=== PATIENT | male | born 1970 | race Caucasian/White ===

== ENCOUNTER 2022-02-25 07:05 | Inpatient (IN) ==
--- OUTSIDE RECORDS SUMMARY | 2022-02-25 09:00 | External Medical Summary ---
:1970 Author Care Team Providers Name Role Phone SAVANAH VOSS Referring Provider [phone] GARIMA VIRGEN MD Primary Care Provider [phone] Allergies Code Code System Name Reaction Severity Status Onset Adhesive Tape Active 20290512 RxNorm Tegretol Active Notes: "Environmental Allergies" Medications Name Status Start Date Stop Date albuterol sulfate HFA 90 mcg/actuation aerosol Active Not available inhaler amoxicillin 875 mg-potassium clavulanate 125 mg Active Not available tablet baclofen 10 mg tablet Active Not availa ble Bactrim DS Active 02/11/2022 Not available Take 1 tablet daily for 10 days bupropion HCl XL 300 mg 24 hr tablet, extended Active Not available release cephalexin 500 mg capsule Active Not av ailable clindamycin phosphate 1 % topical solution Active Not available clonidine HCl 0.2 mg tablet Active Not available duloxetine 30 mg capsule,delayed release Active Not available duloxetine 60 mg capsule,delayed release Active Not available hydrocodone 5 mg-acetaminophen 325 mg tablet Active Not available lorazepam 1 mg tablet Active Not availa ble meloxicam 7.5 mg tablet Active Not avai lable metoclopramide 5 mg tablet Active Not a vailable morphine 15 mg immediate release tablet Active Not available Narcan 4 mg/actuation nasal spray Active Not available peg-electrolyte solution 420 gram oral solution Active Not available pregabalin 150 mg capsule Active Not av ailable sildenafil 50 mg tablet Active Not avai lable sulfamethoxazole 800 mg-trimethoprim 160 mg tablet Active Not available tizanidine 4 mg tablet Active Not avail able Problems Name Status Onset Date Source 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 Past Encounters 02/17/2022 Spastic Cerebral Palsy Stepan Abdul, TOY ELECTRIC TRAIN REPAIRER: [address] [facility] [place] [place] [address], Ph. 01/19/2022 Spastic Cerebral Palsy Benjamin Granger, TOY ELECTRIC TRAIN REPAIRER: [address] [facility] [place] [address], Ph. Social History Tobacco Smoking Status Never Smoker Vaccine List Notes: Covid vaccinated x4 Moderna Plan of Care Patient Goals 1. Pt will need to be free of infection for 2-3 weeks prior to Botox injection. 2. Pt to follow up with IPC after inject ion has cleared. 3. Pt to continue on Bactrim to completi on. Reminders Provider Appointments None recorded. Lab None recorded. Referral None recorded. Procedures None recorded. Surgeries None recorded. Imaging None recorded. Vitals 02/17/2022 11:00AM IPC Procedure 45 min Blood Pressure 168/104 mm[Hg] 01/19/2022 10:00AM IPC Pain Consult- NEW PT Blood Pressure 146/88 mm[Hg]
--- OUTSIDE RECORDS SUMMARY | 2022-02-25 09:00 | External Medical Summary | Encounter Summary ---
:1970 Author Care Team Providers Name Role Phone Rosalva Castrejon MD Primary Care Provider [phone] Gayathri Villegas Referring Provider [phone] Reason for Visit Interventional Pain- In office procedure Assessment and Plan 1. Spastic cerebral palsy 1. Pt presenting in clinic today for Sp lenius capitis, levator scapulae, upper trapezius ; bilateral lower limb spasticity. 2. Pt has an active injection as his por t site. Pt has a red irritated area around the port site. Provider examined the site and explained to pt that we are not able to perform Botox at today's visit due to infection. 3. Pt will need to be free of infection for 2-3 weeks prior to Botox injection. Discussion Note total time spent today by this provide r for this patient, [id number] and non [id number] services combined. Patient educational handouts: No information available. Plan of Care Patient Goals 1. Pt will need to be free of infection for 2-3 weeks prior to Botox injection. 2. Pt to follow up with IPC after inject ion has cleared. 3. Pt to continue on Bactrim to completi on. Reminders Provider Appointments None recorded. Lab None recorded. Referral None recorded. Procedures None recorded. Surgeries None recorded. Imaging None recorded. Medications Name Start Date albuterol sulfate HFA 90 mcg/actuation aerosol inhaler amoxicillin 875 mg-potassium clavulanate 125 mg tablet TAKE 1 TABLET BY MOUTH EVERY DAY WITH FOOD. baclofen 10 mg tablet Bactrim DS 02/11/2022 Take 1 tablet daily for 10 days bupropion HCl XL 300 mg 24 hr tablet, extended release cephalexin 500 mg capsule clindamycin phosphate 1 % topical solution clonidine HCl 0.2 mg tablet duloxetine 30 mg capsule,delayed release TAKE ONE CAPSULE PER DAY WIITH 60 MG CAPSULE - GREEN & OBLONG CAPSULE 747 duloxetine 60 mg capsule,delayed release TAKE 1 CAPSULE BY MOUTH EVERY DAY ALONG WITH A 30MG C APSULE hydrocodone 5 mg-acetaminophen 325 mg tablet TAKE 1 TABLET BY MOUTH TWICE DAILY IF NEEDED lorazepam 1 mg tablet meloxicam 7.5 mg tablet TAKE 1 TABLET BY MOUTH THREE TIMES DAILY -LT YELLOW R OUND UL 7.5 metoclopramide 5 mg tablet morphine 15 mg immediate release tablet TAKE 1 TABLET BY MOUTH 3 TIMES A DAY NEEDED FOR CHRONIC PAIN - NO MORE THAN 3 IN 24 HOURS Narcan 4 mg/actuation nasal spray peg-electrolyte solution 420 gram oral solution pregabalin 150 mg capsule sildenafil 50 mg tablet sulfamethoxazole 800 mg-trimethoprim 160 mg tablet tizanidine 4 mg tablet TAKE TAKE 1 & 1/2 TABLETS BY MOUTH THRE E TIMES A DAY AND 2 & 1/2 TABLETS AT BEDTIME MAY CAUSE DROWSINESS Medications Administered None recorded. Vitals Blood Pressure 168/104 mm[Hg] Results Lab Results None recorded. Allergies Code Code System Name Reaction Severity Onset Adhesive Tape 20290512 RxNorm Tegretol Notes: "Environmental Allergies" Problems Name Status Onset Date Source Spastic [...] with many replacements, most recent in 2021" Vaccine List Notes: Covid vaccinated x4 Moderna Social History Tobacco Smoking Status Never Smoker What type of diet are you following? REGULAR What is your level of alcohol consumption? None What is the highest grade or level of school you have comple linda or [id number] the highest degree you have received? Are you able to care for yourself? Y Are you currently employed? N What was the date of your most recent tobacco screening? Do you have an advanced directive? Y What is your level of caffeine consumption? Moderate Do you or have you ever used any other forms of tobacco or n icotine? N Do you use any illicit or recreational drugs? N What is your relationship status? Functional Status Unknown. Past Encounters 02/17/2022 Spastic Cerebral Palsy Stepan Abdul, TARGET PROTECTION SPECIALIST: [address] [place] [address], Ph. 01/19/2022 Spastic Cerebral Palsy Benjamin Granger, TARGET PROTECTION SPECIALIST: [address] [facility] [place] [address], Ph. History of Present Illness Note: <div>Pt is a 52yo M presenting in clinic today for Splenius capitis, levator scapulae, upper trapezius ; bilateral lower limb spasticity. </div><div>
</div> Review of Systems None recorded. Physical Exam Notes: <div>Pt has an active inject ion as his port site. Pt has a red irritated area around the port site. Provid er examined the site and explained to pt that we are not able to perform Boto x at today's visit due to infection. </div>
--- OUTSIDE RECORDS SUMMARY | 2022-02-25 09:01 | External Medical Summary | Encounter Summary ---
:1970 Author Care Team Providers Name Role Phone Rosalva Castrejon MD Primary Care Provider [phone] Gayathri Villegas Referring Provider [phone] Reason for Visit Interventional Pain - Initial Consultati on DAMI Villegas referral- limb spasticity Assessment and Plan Assessment Note Patient presents to clinic today for in itial consultation for diagnosis documented below. Patient will be scheduled for interventi onal pain injection. 1. Spastic cerebral palsy 1. Pt reports Hx spastic cerebral palsy treated with botox injections. Pt reports primary complaint of anesthesia bilateral hands.; paresthesia bilateral foot 2. Pt reports spastic plantarflexion richie ateral lower extremities but reports ability to walk with a plantar gait. Pt reports use of prescribed joint braces, orthotics with some relief 3. Tenderness to palpation, increased to ne bilateral splenius capitis, upper trapezius, levator scapulae 4. Lower limb spasticity - See PE for As hworth rating 5. Pt will be scheduled for Botox Inject ion - Cervical Dystonia and Lower Limb Spasticity chemodenervation of muscle(s); muscle (s) innervated by facial, trigeminal, cervical spinal and accessory nerves, bi lateral (PROC) Discussion Note total time spent today by this provide r for this patient, [id number] and non [id number] services combined. Patient educational handouts: No information available. Plan of Care Reminders Provider Appointments None recorded. Lab None recorded. Referral None recorded. Procedures Chemodenervation of 01/19/2022 Maureen In terventional Muscle(s); Muscle(s) Pain Innervated by Facial, Trigeminal, Cervical Spinal and Accessory Nerves, Bilateral (PROC) Surgeries None recorded. Imaging None recorded. Medications [...] Medications Administered None recorded. Vitals Blood Pressure 146/88 mm[Hg] Results Lab Results None recorded. Allergies [...] Information not available Vasectomy Information not avai labalfonso Notes: Pain pump - initial placement 1 997, with many replacements, most recent in 2021" Vaccine List Notes: Covid vaccinated x4 Moderna Social History Tobacco Smoking Status Never Smoker What type of diet are you following? REGULAR What is your level of alcohol consumption? None What is the highest grade or level of school you have comple linda or [id number] the highest degree you have received? Are [...] relationship status? Functional Status Unknown. Past Encounters 01/19/2022 Spastic Cerebral Palsy Benjamin Granger INSECTICIDE EXPERT: [address] [facility] [place] [address], Ph. History of Present Illness Pain Management Initial Reported By: Patient Pain Management Initial: Hand Dominance: ambidextrous . Quality: constant, worsening. Duration: ; "Since childhood - keeps getting worse". Timing: chronic. Alleviating Factors : sitting, lying down, position change, heat, ice, rest, str etching, PT/OT. Aggravating Factors: sitting, standing, walking, lifting, carrying, twisting, pushing/pulling, g ripping, grasping, squeezing, ROM, weightbearing, exercise , previous surgery, changing clothes, getting out of bed, going from sit to stand, nighttime, cold weather, dam p weather. Associated Symptoms: weakness, numbness, tingling , swelling, popping/clicking, buckling, grinding, instabil ity. Previous Surgery: surgical procedure:. Prior Imaging: x ray, MRI, CT scan, EMG. Previous Injections: helped temporarily. Previous PT: helped temporarily. Work Related: n o. 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 Pt reports Hxcerebral palsy treated with botox injections. Pt reports primary complaint of anesthesia bilateral hands.; paresthesia bilateral foot. Pt reports spastic plantarflexion bilateral lower extremities but reports ability to walk with a plantar gait. Pt reports use of prescribed joint braces, orthotics with some relief.</div><div>
</div><div>Pt reports pain in right hip and attributes this to osteoarthritis of joint. Pt reports pain in right shoulder joint and attributes this to tendinitis. Pt reports Dx herniated discs, compression fracture of lumbar spine. Pt reports pain in low back referring down posterolateral aspect of bilateral lower extremities, terminating low calf. Pt reports recent change in sexual function, decreased sensation. Pt denies any bowel, bladder incontinence.</div><div>
</div><div>Pain location: "All Over "</div><div>New injury or new area of pain? {{yes|no*}}</div><div>Current pain rating: {{0|1|2|3|4|5|6|7|8*|9|10}}</div><div>Pain rating when feeling &qu ot;worst": {{0|1|2|3|4|5|6|7|8|9*|10}}</div><div>Pain rating when feeling &q uot;best": {{0|1|2|3|4|5|6*|7|8|9|10}}</div><div>Rating of "average, usual" pain: {{0|1|2|3|4|5|6|7*|8|9|10}} </div><div>Is the patient's painradiating? {{yes*|no}}</div><div>Is the patient experiencing muscle weakness? {{yes*|no}} </div><div>Has patient participated in Physical Therapy? {{yes*|no}}. If yes, duration {{1|2|3|4|5|6|7|8|9|10|11|12}}week(s) Last in 2019</div><div>Was Physical Therapy Helpful?{{yes*|no}}</div><div>Has patient tried chiropractic therapy? {{yes*|no}}</div><div>Has patient tried Massage Therapy? {{yes*|no}}</div><div>Has patient tried home exercise therapy? {{yes*|no}}</div><div>Has patient tried OTC medication? {{yes*|no}} If so, what kind?{{Acetaminophen*}}{{NSAIDs}}{{Topical Pain relief gels/creams*}}</div><div>Were any OTC medication effective? {{yes*|no}}</div><div>Has patient tried prescription medication? {{yes*|no}} If so, what kind?</div><div>Does this pain affect patient'sability to perform activities of daily living? {{yes*|no}}</div><div>How many times in the past year has the patient visited an emergency room for out of control pain or pain management? 0</div><div>Do the patient experience problems with any of the following?{{sleep}}{{appetite}}{{bowel control}}{{bladder control*}}{{night sweats}}</div> Review of Systems NEW PATIENT - 10 item ROS Reported By: Patient Physical Exam Notes: <div>Pt refered to us for co ntinuation of BOTOX treatment for upper and lower limb spasticity. Pt with mul tiple areas of spasticity in the upper and lower limbs. Below is the full ass essment of patients upper and lower limbs with michelle scale. </div><div>T enderness to palpation, increased tone bilateral upper trapezius</div><div>Te nderness to palpation, increased tone bilateral splenius capitis</div><div>T enderness to palpation, increased tone bilateral levator scapulae</div><div>< br></div><div>Abrasion dorsal right foot</div><div>
</div><di v>ASSESSMENT OF LOWER LIMB SPASTICITY</div><div>
</d iv><div>Side: {{Left|Right*}}</div><div>Michelle Scale</div><div>
</div ><div>ALKLE FLEXORS</div><div> - GASTROCNEMIUS {{1|2|3*|4}} medial and late ral head</div><div> - SOLEUS {{1|2|3*|4}}</div><div> - TIBIALIS POSTERIOR {{1|2|3*|4}}</div><div>
< /div><div>TOE FLEXORS</div><div> - FLEXOR DIGITORUM LONGUS {{1|2|3|4*} }</div><div> - FLEXOR HALLUCIS LONGUS {{1|2|3*|4}}</div><div>
< /div><div>
</div><div>ASSESSMENT OF LOWER LIMB SPASTICITY</div><div>
</d iv><div>Side: {{Left*|Right}}</div><div>As hworth Scale</div><div>
</div><div>ALKLE FLEXORS</div><div> - GASTROC NEMIUS {{1|2|3*|4}} medial and lateral head</div><div> - SOLEUS {{1 |2|3|4*}}</div><div> - TIBIALIS POSTERIOR {{1|2|3*|4}}</div><div>
< /div><div>TOE FLEXORS</div><div> - FLEXOR DIGITORUM LONGUS {{1|2|3|4*} }</div><div>Phalanx 2: 3; Phalanx 3-4: 3; Phalanx 5: 3</div><div> - FLEXOR DIANA LUCIS LONGUS {{1|2|3*|4}}</div>
--- OUTSIDE RECORDS SUMMARY | 2022-02-25 09:01 | External Medical Summary ---
:1970 Author Care Team Providers Name Role Phone DR. GARIMA VIRGEN Referring Provider [phone] GARIMA VIRGEN MD Primary Care Provider [phone] Allergies Code Code System Name Reaction Severity Status Onset NKDA Notes: tape Medications Name Status Start Date Stop Date amoxicillin 875 mg-potassium clavulanate 125 mg Active Not available tablet baclofen 10 mg tablet Active Not availa ble bupropion HCl XL 150 mg 24 hr tablet, extended Active Not available release bupropion HCl XL 300 mg 24 hr tablet, extended Completed 09/18/2019 release clonidine HCl 0.2 mg tablet Active Not available doxycycline hyclate 100 mg tablet Active Not available Take 1 tablet every day by oral route. duloxetine 30 mg capsule,delayed release Active Not available etodolac 200 mg capsule Active Not avai lable gabapentin 100 mg capsule Completed 2019 gabapentin 300 mg capsule Completed 2019 hydrocortisone 2.5 % topical cream Active Not available APPLY A THIN LAYER TO THE AFFECTED AREA(S) BY TOPICAL ROUTE 2 T IMES PER DAY hydromorphone (PF) 1 mg/mL injection solution Active Not available Take 1.924 mg every day by injection route. hydromorphone 2 mg tablet Completed 2019 Take 1 tablet every 3 hours by oral route as needed. lorazepam 1 mg tablet Active Not availa ble Lyrica 75 mg capsule Active Not availab le Take 1 capsule 3 times a day by oral route. morphine 15 mg immediate release tablet Active Not available 1 Tablet TID. Narcan 4 mg/actuation nasal spray Completed 09/18/2019 Nulytely [place] 420 gram oral solution Active Not available DIRECTED BY PHYSICANS OFFICE pregabalin 150 mg capsule Completed 2019 ProAir HFA 90 mcg/actuation aerosol inhaler Active Not available Inhale 2 puffs every 4 hours by inhalation route. tizanidine 4 mg tablet Completed 0 Zanaflex 4 mg capsule Active Not availa ble Take 1 capsule every 6 hours by oral route. Notes: Pain pump Problems Name Status Onset Date Source Anemia Active 04/08/2019 Chronic Depression Active 04/08/2019 Restless Legs Active 04/08/2019 Spastic Cerebral Palsy Active 04/08/2019 Hypertensive Disorder Active 04/08/2019 Muscle Pain Active 04/08/2019 Sleep Apnea Active 04/08/2019 Incontinence Active 04/08/2019 Dystonia Active 04/08/2019 Low Back Pain Active 09/18/2019 Pain in Right Hip Joint Active 09/18/2019 Procedures Date Name Performed by Pain Pump Placement/Removal Information not available Tonsillectomy Information not avai lable Hernia Repair Information not avai lable Tendon Lengthening Information not avai lable Unlisted Px Leg/ankle Information not av ailable Notes: Right Extraction of [place] Tooth Information n ot available 09/25/2019 CT, Lumbar Spine, W/o Contrast [facility] [address] [facility], [place] [id number] (Work Place) 09/25/2019 CT, Hip, W/o Contrast [facility] [address] [place] [address] (Work Place) Results Lab Results None recorded. Past Encounters None recorded. Social History Tobacco Smoking Status Never Smoker Vaccine List None recorded. Plan of Care Reminders Provider Appointments None recorded. Lab None recorded. Referral None recorded. Procedures None recorded. Surgeries None recorded. Imaging None recorded. Vitals 12/02/2019 11:30AM Established Patient 15 Height Weight BMI Blood Pressure 5 ft 9 in 214 lbs 31.6 kg/m2 118/82 mm[Hg] 09/18/2019 10:30AM New Patient 30 Height Weight BMI Blood Pressure 5 ft 9 in 218.2 lbs 32.2 kg/m2 114/84 mm[Hg]
--- OUTSIDE RECORDS SUMMARY | 2022-02-25 09:01 | External Medical Summary ---
:1970 Author Care Team Providers Name Role Phone GARIMA VIRGEN MD Primary Care Provider [phone] Allergies Code Code System Name Reaction Severity Status Onset NKDA Medications Name Status Start Date Stop Date amoxicillin 875 mg-potassium clavulanate 125 mg tablet Active Not available azithromycin 250 mg tablet Completed 08/22 baclofen 10 mg tablet Active Not availa ble bupropion HCl XL 150 mg 24 hr tablet, extended release Active Not available bupropion HCl XL 300 mg 24 hr tablet, extended release Active Not available cephalexin 500 mg capsule Completed 2017 clonidine 0.2 mg-chlorthalidone 15 mg tablet Completed 09/25/2017 Take 1 tablet twice a day by oral route. clonidine HCl 0.2 mg tablet Active Not available diazepam 5 mg tablet Active Not availab le duloxetine 30 mg capsule,delayed release Active Not available duloxetine 60 mg capsule,delayed release Active Not available ertapenem 1 gram solution for injection Completed 10/23/2018 etodolac 200 mg capsule Completed 10/24/19 19 gabapentin 100 mg capsule Active Not av ailable gabapentin 300 mg capsule Active Not av ailable tid hydrocodone 10 mg-acetaminophen 325 mg tablet Completed 08/22/2017 hydromorphone 2 mg tablet Completed 2018 hydroxyzine pamoate 25 mg capsule Completed 10/23/2018 lorazepam 1 mg tablet Active Not availa ble Lyrica 75 mg capsule Completed 08/22/2017 Take 1 capsule twice a day by oral route. meloxicam 7.5 mg tablet Active Not avai lable methylprednisolone 4 mg tablets in a dose pack Completed 08/22/2017 morphine 15 mg immediate release tablet Active Not available morphine 15 mg tablet, crush resistant, extended release Complet ed 03/01/2018 Take 1 tablet every 12 hours by oral route. Narcan 4 mg/actuation nasal spray Active Not available nystatin 100,000 unit/gram topical powder Active Not available oxycodone 15 mg tablet Completed 8 oxycodone 5 mg tablet Completed 03/01/2018 oxycodone-acetaminophen 5 mg-325 mg tablet Completed 06/21/2018 pregabalin 150 mg capsule Active Not av ailable silver sulfadiazine 1 % topical cream Completed 06/21/2018 tizanidine 4 mg tablet Active Not avail able acetaminophen 300 mg-codeine 30 mg tablet Active Not available Ventolin HFA 90 mcg/actuation aerosol inhaler Active Not available Xarelto 10 mg tablet Completed 03/01/2018 Problems Name Status Onset Date Source Mechanical Complication of Implant Active 06/27/2017 Pain in Right Hip Joint Active 06/27/2017 Pain in Right Knee Active 06/27/2017 Aftercare Active 11/23/2017 Arthritis of Right Knee Active 01/02/2018 Replacement of Total Knee Joint Active 06/21/2018 External Rotation of Lower Limb Active 07/31/2018 Hip Pain Active 09/14/2018 Procedures Date Name Performed by 01/10/2018 Total Knee Arthroplasty Information not available Notes: right 07/12/2017 Removal of Plating System (Surg) Informa tion not available 06/27/2017 XR, Hip, Unilateral, 2 [place] [address] [place] [phone] (Work Place) 06/27/2017 XR, Knee, 4 [place] [address] [place] [phone] (Work Place) 07/25/2017 XR, K[place], 1 [place] [address] [facility] [address] [phone] (Work Place) 08/22/2017 XR, Knee, 1 [place] 2 [place] [address] [place] [phone] (Work Place) 09/25/2017 XR, Knee, 4 [place] [address] [place] [phone] (Work Place) 11/23/2017 XR, Joint, Multiple, 1 [place] [address] [place] [phone] (Work Place) 01/02/2018 XR, Knee, 1 or 2 View [place] [address] [place] [address] (Work Place) 01/04/2018 XR, Foot, 3 or More View [place] [address] [place] [address] (Work Place) 01/04/2018 XR, Ankle, 3 or More View [place] [address] [place] [address] (Work Place) 06/21/2018 XR, Knee, 3 View [place] [address] [place] [address] (Work Place) 06/21/2018 XR, Joint, Multiple, 1 View [place] [address] [place] [address] (Work Place) 09/13/2018 XR, Hip, Unilateral, 2 or 3 View [place] [address] o [address] [place] [address] (Work Place) 09/13/2018 XR, Joint, Multiple, 1 View [place] [address] [place] [address] (Work Place) 10/23/2018 XR, Hip, Unilateral, 2 [place] [address] [place], [place] [phone] (Work Place) 12/13/2018 XR, Knee, 3 View [place] [address] [place] [address] (Work Place) Results Lab Results Date Name Specimen Result Interpretation Description Value Range Status Address 02/08/2018 Culture, KNEE ABNORMAL Aerobic final report F inal [facility] Aerobic Bacterial ([facility]): Culture [address], [place] KNEE ABNORMAL Result 1 escherichia Final [facility] coli ([facility]) : [address], [place] KNEE Antimicrobial comment Final [facility] Susceptibility ([facility]): [address], [place] Past Encounters None recorded. Social History Tobacco Smoking Status Never Smoker Vaccine List None recorded. Plan of Care Reminders Provider Appointments None recorded. Lab None recorded. Referral None recorded. Procedures None recorded. Surgeries None recorded. Imaging None recorded. Vitals 12/13/2018 10:45AM Recheck 15 Height Weight BMI Blood Pressure 6 ft 210 lbs 28.5 kg/m2 97/69 mm[Hg] 10/23/2018 01:30PM Recheck 15 Height Weight BMI Blood Pressure 6 ft 210 lbs 28.5 kg/m2 152/93 mm[Hg] 09/13/2018 01:30PM Recheck 15 Height Weight BMI Blood Pressure 6 ft 210 lbs 28.5 kg/m2 133/87 mm[Hg] 07/30/2018 11:30AM Recheck 15 Height Weight BMI Blood Pressure 6 ft 200 lbs 27.1 kg/m2 108/56 mm[Hg] 06/21/2018 10:15AM Recheck 15 Height Weight BMI Blood Pressure 6 ft 200 lbs 27.1 kg/m2 131/93 mm[Hg] 03/15/2018 11:15AM Post Op 15 Height Weight BMI Blood Pressure 6 ft 200 lbs 27.1 kg/m2 116/74 mm[Hg] 03/01/2018 10:00AM Post Op 15 Height Weight BMI Blood Pressure 6 ft 200 lbs 27.1 kg/m2 110/65 mm[Hg] 02/20/2018 03:30PM Post Op 15 Height Weight BMI Blood Pressure 6 ft 210 lbs 28.5 kg/m2 101/65 mm[Hg] 02/08/2018 03:30PM 1st PO 15 Height Weight BMI Blood Pressure 6 ft 210 lbs 28.5 kg/m2 153/83 mm[Hg] 01/04/2018 11:00AM [employer]TER to Height Weight BMI Blood Pressure 6 ft 210 lbs 28.5 kg/m2 158/99 mm[Hg] 01/02/2018 10:30AM Preop 15 Height Weight BMI Blood Pressure 6 ft 210 lbs 28.5 kg/m2 141/92 mm[Hg] 12/05/2017 08:30AM [employer] to Height Weight BMI Blood Pressure 6 ft 210 lbs 28.5 kg/m2 140/83 mm[Hg] 11/23/2017 11:30AM Recheck 15 Height Weight BMI Blood Pressure 6 ft 210 lbs 28.5 kg/m2 120/82 mm[Hg] 09/25/2017 11:20AM Recheck 10 Height Weight BMI Blood Pressure 6 ft 210 lbs 28.5 kg/m2 120/78 mm[Hg] 08/22/2017 01:50PM New Problem 15 Height Weight BMI Blood Pressure 6 ft 222 lbs 30.1 kg/m2 132/89 mm[Hg] 07/25/2017 10:45AM 1st PO 15 Height Weight BMI Blood Pressure 6 ft 222 lbs 30.1 kg/m2 146/87 mm[Hg] 06/27/2017 01:45PM Recheck 15 Height Weight BMI Blood Pressure 6 ft 222 lbs 30.1 kg/m2 133/83 mm[Hg]
--- NOTE | 2022-02-25 10:39 | Internal Med History&Physical ---
HPI History of Present Illness Patient information: Note initiated : 02/25/22 at 10:21 am Service Date, if different from initiated Date: [] Patient: Aden Restrepo 52 y/o M admitted on 02/25/22 for pain pump wound. Chief Complaint: [pain pump complications] Chief complaint: pain pump complications History of present illness: Mr. 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 He had pain pump placed in left upper quadrant abdomen in April of this year. It has been noted that the pain pump has eroded through the skin with a opening up to have in just in diameter for the past week. There was also slightly purulent discharge from the site. Last night the patient's had a mechanical fall in the pain pump components completely detached. He presented to outside ED [place], and the ED provider call Dr. Du pain specialist who agree to take the patient to the OR to take out the OR and malfunctioning pain pump and potenti ally place a new pump in another site. Constitutional Constitutional: Absent chills, excessive sweating, fatigue, fever(s) or weakness EENT Eyes: Absent blurry vision, change in vision, loss of vision or other visual disturbances Ears: Absent decreased hearing or tinnitus Nose, mouth and throat: Absent abnormal hearing, dry mouth, headache(s), nasal congestion or sore throat Cardiovascular Cardiovascular: Absent chest pain, chest pain at rest, edema, irregular heart rhythm or palpatations Respiratory Respiratory: Absent cough, dyspnea or wheezing Gastrointestinal Gastrointestinal: Absent abdominal pain, constipation, diarrhea, nausea or vomiting Musculoskeletal Musculoskeletal: Absent back pain, deformity, limited range of motion, muscle cramps, muscle weakness or numbness Integumentary Integumentary: Absent lesions, rash or wounds Neurological Neurological: Absent focal weakness, headache(s) or numbness Psychiatric Psychiatric: Absent anxiety, depression or hallucinations PFSH PFSH All Active Problems (Updated 02/25/22 @ 10:34 by Evgeny Barroso MD) Cellulitis and abscess of other specified site (Acute) Fever (Chronic) End of battery life of intrathecal infusion pump (Chronic) Spastic quadriplegia (Chronic) Acne (Chronic) Myalgia (Chronic) Urge incontinence (Chronic) Torsion dystonia (Chronic) 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) Central sleep apnea (Chronic) Hypoxia (Chronic) Gynecomastia (Chronic) Abnormal liver function (Chronic) RLS (restless legs syndrome) (Chronic) Anemia due to blood loss (Chronic) Muscle weakness of extremity (Chronic) Pain, joint, hip, right (Chronic) Pneumonia, unspecified organism (Chronic) Overweight (Chronic) Visual impairment (Chronic) Opioid dependence (Chronic) Dyslexia (Chronic) Depression (Chronic) Chronic pain (Chronic) Cerebral palsy (Chronic) Abnormality of gait (Chronic) Spasmodic torticollis (Chronic) Degenerative joint disease (Chronic) Generalized anxiety disorder (Chronic) Headache (Chronic) Hypertension (Chronic) Bronchitis, chronic (Chronic) GERD (gastroesophageal reflux disease) (Chronic) Basal cell carcinoma of skin, unspecified (Chronic) Medical History (Updated 02/25/22 @ 10:34 by Evgeny Barroso MD) Abnormal liver function Abnormality of gait Acne Anemia due to blood loss Basal cell carcinoma of skin, unspecified Bronchitis, chronic Central sleep apnea Cerebral palsy With intrathecal pump in place Chronic pain With intrathecal pump in place Degenerative joint disease Depression Dyslexia End of battery life of intrathecal infusion pump Fever Generalized anxiety disorder GERD (gastroesophageal reflux disease) Gynecomastia Headache Hypertension Hypoxia [facility] (current) use of opiate analgesic Muscle weakness of extremity Myalgia Opioid dependence Overweight Pain, joint, hip, right Pneumonia, unspecified organism RLS (restless legs syndrome) Spasmodic torticollis Spastic quadriplegia Torsion dystonia Urge incontinence Visual impairment Surgical History (Updated 03/09/21 @ 08:58 by Ann-Marie Diaz) History of hernia surgery Double hernia at 3 months History of surgery (~2002) Titanium rodding of right femur-Al Sabillon MD, achilles tendon extension History of surgical procedure Intrathecal pain pump placement-11/27/03. Replacement 11/28/[address] Dani Cronin-[facility]. Revision 09/13/11 Dr Elmo Lobo, [facility] History of tonsillectomy and adenoidectomy History of total knee arthroplasty (01/10/18) Dr Toshia Jensen- [facility] History of wisdom tooth extraction Family History (Updated 06/02/21 @ 11:45 by Ann-Marie Davalos) Father History of cancer High blood pressure Arthritis Chronic pain Diabetes Family/Other History of cancer Social History (Updated 06/02/21 @ 11:46 by Ann-Marie Davalos) marital status: occupational status: unemployed and disabled smoking status: Never smoker alcohol intake frequency: does not drink substance use type: does not use MEDS/ALLERGIES Home Medications and Allergies Home Medications Medication Instructions Recorded Confirmed Type albuterol sulfate 90 mcg/actuation 90 mcg inhalation Q6HP PRN 03/11/21 11/29/21 History aerosol inhaler Shortness Of Breath amoxicillin 875 mg-potassium 1 tab PO QDAY 03/11/21 11/29/21 History clavulanate 125 mg tablet bupropion HCl 300 mg 24 hr tablet, 300 mg PO QDAY 03/11/21 11/29/21 History extended release lorazepam 1 mg tablet 1 - 2 mg PO BID 03/11/21 11/29/21 History meloxicam 7.5 mg tablet 7.5 mg PO TID 03/11/21 11/29/21 History Bio Soothe 1 cap PO QDAY 04/15/21 11/29/21 History Electrolyte Replacement 1 tab PO QDAY 04/15/21 11/29/21 History Floraspring 1 cap PO QDAY 04/15/21 11/29/21 History acetaminophen 325 mg tablet 650 mg PO Q6H PRN Pain 04/15/21 11/29/21 History calcium 600 mg capsule 600 mg PO QDAY 04/15/21 11/29/21 History cholecalciferol (vitamin D3) 125 125 mcg PO QDAY 04/15/21 11/29/21 History mcg (5,000 unit) tablet (Vitamin D3) diphenhydramine HCl 25 mg capsule 25 mg PO Q6H PRN Allergies 04/15/21 11/29/21 History (Allergy (diphenhydramine)) glucosamine sulf dipot 1 cap PO QDAY 04/15/21 11/29/21 History chlr,msm,chond 550 mg-C 30 mg-roscoe 1 mg capsule (Glucosamine Chondroitin) multivitamin 1 tab PO QDAY 04/15/21 11/29/21 History potassium 99 mg tablet 99 mg PO QDAY 04/15/21 11/29/21 History clonidine HCl 0.2 mg tablet 0.2 mg PO BID #60 tabs 07/02/21 11/29/21 Rx duloxetine 30 mg capsule,delayed 30 mg PO QDAY #30 caps 07/02/21 11/29/21 Rx release duloxetine 60 mg capsule,delayed 60 mg PO QDAY #30 caps 07/02/21 11/29/21 Rx release naloxone 4 mg/actuation nasal 4 mg intranasal Q2M #1 ea 07/02/21 11/29/21 Rx spray (Narcan) sulfamethoxazole 800 1 tab PO BID #20 tabs 07/27/21 11/29/21 Rx mg-trimethoprim 160 mg tablet hydrocodone 5 mg-acetaminophen 325 1 tab PO BID #60 tabs 11/29/21 11/29/21 Rx mg tablet morphine 15 mg immediate release 15 mg PO TID #90 tabs 11/29/21 11/29/21 Rx tablet baclofen 10 mg tablet 10 mg PO TID #90 tabs 12/31/21 Rx tizanidine 4 mg tablet 6 - 10 mg PO QID #120 tabs 12/31/21 Rx pregabalin 150 mg capsule 150 mg PO TID #90 caps 02/15/22 Rx Allergies Allergy/AdvReac Type Severity Reaction Status Date / Time carbamazepine [From Tegretol] Allergy Severe Shortness Verified 11/29/21 10:59 of Breath adhesive tape Allergy Intermediate Hives Verified 11/29/21 10:59 baclofen AdvReac Intermediate Nausea Verified 11/29/21 10:59 No to Iodine Allergy Unknown Unknown Uncoded 11/29/21 10:59 No to Latex Allergy Unknown Unknown Uncoded 11/29/21 10:59 EXAM Constitutional Vitals: Temp Pulse Resp BP Pulse Ox O2 Del Method 36.1 C 77 16 148/90 96 02/25/22 09:17 02/25/22 09:17 02/25/22 09:17 02/25/22 09:17 02/25/22 09:17 02/25/22 09:17 General appearance: cooperative and no acute distress Head Head exam: Present atraumatic and normocephalic Eye Eye exam: Present EOMI and PERRL ENT ENT exam: Present mucous membranes moist, normal exam and normal external ear exam Neck Neck exam: Present normal inspection; Absent lymphadenopathy, tenderness or thyromegaly Respiratory Respiratory exam: Absent accessory muscle use, respiratory distress or wheezes Cardiovascular Cardiovascular exam: Present normal rate and rhythm; Absent JVD GI/Abdominal GI/Abdominal exam: Present normal bowel sounds and soft; Absent organomegaly or tenderness Additional comments: Pain pump in LUQ abdomen with 1/2 inch open wound with surrounding erythema and slight purulent discharge Rectal Rectal exam: Present deferred Extremities Exam Extremities exam: Present full ROM, normal capillary refill and normal inspection; Absent tenderness Neurological Exam Neurological exam: Present alert, CN II-XII intact and oriented X3; Absent motor sensory deficit Psychiatric Psychiatric exam: Present normal affect and normal mood; Absent anxious or depressed Skin Skin exam: Present dry and intact A/P Assessment and plan (1) Depression: Status: Chronic (2) Generalized anxiety disorder: Status: Chronic (3) Spastic quadriplegia: Status: Chronic (4) Chronic pain: Status: Chronic Comment: With intrathecal pump in place (5) Cellulitis and abscess of other specified site: Status: Acute Narrative A/P Narrative: Assessment and Plans: 1. Pain pump complications and infection: Inpatient med surg Dr. Du consulted for removal of old pain pump and replacement of a new pain pump; NPO with IN fluid infusion for now until date/time of the surgery(procedure) confirmed Blood culture Wound culture MRSA PCR screening cbc w/ auto diff in the morning to trend WBC Vancomycin Cefepime Diflucan 2. Chronic pain associated with spastic quadriplegia: Baclofen, Mathis, and Dilaudid PRN pain control until new pain pump is functional 3. Anxiety and depression: Bupropion Duloxetine Lorazepam GI ppx: not currently indicated DVT ppx: SCDs Code status: Full Prognosis: guarded Disposition: inpatient med surg Time Spent With Patient Time: Total time spent is greater than 50% in coordination of care (as documented) at patient's floor/unit and/or counseling patient: Total time spent with greater than 50% in coordination of care (as documented) at patient's floor/unit and/or counseling patient:: 50 - 70 minutes
[2022-02-25] MEDS ORDERED: IPRATROPIUM/ALBUTEROL 3 ML AMPUL.NEB NEB PRN ×2 (10:42→14:31)
[2022-02-25] MEDS ORDERED: 0.9 % SODIUM CHLORIDE 1,000 ML IV SCH (10:42)
[2022-02-25] MEDS ORDERED: VANCOMYCIN PER PHARMACY IV SCH (10:42)
[2022-02-25] MEDS ORDERED: ONDANSETRON 4 MG/2 ML VIAL IV PRN ×2 (10:42→14:31)
[2022-02-25] MEDS ORDERED: ACETAMINOPHEN 325 MG TABLET PO PRN (10:42)
[2022-02-25] MEDS: HYDROmorphone 0.5 MG/0.5 ML SYRINGE IV PRN ×2 (12:13→21:15)
[2022-02-25] MEDS ORDERED: diphenhydrAMINE 25 MG CAPSULE PO PRN (12:13)
[2022-02-25] MEDS ORDERED: ALBUTEROL SULFATE 60 PUFF INHALER INH PRN (12:13)
[2022-02-25] MEDS ORDERED: ACETAMINOPHEN (PP) 325MG TABLET (#50) PO PRN (12:13)
[2022-02-25] MEDS ORDERED: LORazepam (PP) 1 MG TABLET (#4) PO SCH (12:15)
[2022-02-25 12:28] LABS: ALT/SGPT 13 U/L (<40); AST/SGOT 16 U/L (<40); Albumin 4.2 gm/dL (3.2-5.2); Albumin/Globulin Ratio 1.4 (1.0-2.3); Alkaline Phosphatase 87 U/L (39-117); Bilirubin,Direct < 0.2 mg/dL (0-0.3); Bilirubin,Total 0.4 mg/dL (0.1-1.0); Blood Urea Nitrogen 16 mg/dL (6-20); Calcium 9.1 mg/dL (8.6-10.4); Carbon Dioxide 27 mmol/L (22-30); Chloride 99 mmol/L (96-108); Globulin 2.9 gm/dL (2.2-3.7); Glomerular Filtration Rate 103; Glucose 103 mg/dL (70-105); Lactate Dehydrogenase 215 U/L (135-225); Phosphorous 3.5 mg/dL (2.5-4.5); Triglycerides 77 mg/dL (<150); Uric Acid 3.2 mg/dL (2.5-8.0)
[2022-02-25] MEDS ORDERED: GLYCOPYRROLATE 0.2 MG/ML VIAL IV ONE (13:54)
[2022-02-25] MEDS ORDERED: DEXAMETHASONE 10 MG/ML VIAL ONE (13:54)
[2022-02-25] MEDS ORDERED: KETAMINE 50 MG/ML Syringe (ANEST) IV ONE (13:54)
[2022-02-25] MEDS ORDERED: fentaNYL 100 MCG/2 ML VIAL IV ONE (13:54)
[2022-02-25] MEDS ORDERED: PROPOFOL 200 MG/20 ML VIAL IV ONE (13:54)
[2022-02-25] MEDS ORDERED: ONDANSETRON 4 MG/2 ML VIAL ONE (13:54)
[2022-02-25] MEDS ORDERED: PHENYLephrine 1 MG/10 ML SYRINGE (ANEST) ONE (13:54)
[2022-02-25] MEDS ORDERED: MAGNESIUM SULFATE 2 GM/50 ML BAG IV ONE (13:54)
[2022-02-25] MEDS ORDERED: LIDOCAINE HCL/PF 100 MG/5 ML SYRINGE IV ONE (13:54)
[2022-02-25] MEDS ORDERED: LIDOCAINE W/EPI 1% 20 ML VIAL IJ ONE (14:21)
[2022-02-25] MEDS ORDERED: HYDROmorphone 0.5 MG/0.5 ML SYRINGE IV PRN (14:31)
[2022-02-25] MEDS ORDERED: ACETAMINOPHEN 1,000 MG/100 ML BAG IV ONE (14:31)
[2022-02-25] MEDS ORDERED: MEPERIDINE 25 MG/ML VIAL IV PRN (14:31)
[2022-02-25] MEDS ORDERED: NALOXONE HCL 0.4 MG/ML VIAL IV PRN (14:31)
[2022-02-25] MEDS ORDERED: METOPROLOL TARTRATE 5 MG/5 ML VIAL IV PRN (14:31)
[2022-02-25] MEDS ORDERED: LABETALOL 5 MG/ML ML IV PRN (14:31)
[2022-02-25] MEDS ORDERED: METHOCARBAMOL 1,000 MG/10 ML VIAL IV PRN (14:31)
[2022-02-25] MEDS ORDERED: LACTATED RINGERS 250 ML IV PRN (14:31)
[2022-02-25] MEDS ORDERED: LACTATED RINGERS 1,000 ML IV SCH (14:45)
--- NOTE | 2022-02-25 15:46 | Brief Operative Note ---
Brief Operative Note Date of procedure: 02/25/22 Pre-op Diagnosis: Other (Infected/exposed intrathecal medication pump) Post-op diagnosis: same Procedure: Other (Intrathecal pump explant, I and D of wound) Grafts/Implants: No Anesthesia: GLMA Complications: none Surgeon: Marc Du Estimated blood loss (cc): 200 Specimens Removed/Pathology: other (wound cultures) Condition: stable Disposition: PACU
[2022-02-25] MEDS: fentaNYL 100 MCG/2 ML VIAL IV PRN ×4 (16:38→17:02)
[2022-02-25] MEDS: 0.9 % SODIUM CHLORIDE 10 ML SYRINGE IV SCH ×2 (17:02→20:57)
[2022-02-25] MEDS: morphine 15 MG TABLET PO SCH ×2 (17:36→20:39)
[2022-02-25] MEDS: tiZANidine 4 MG TABLET PO SCH ×2 (17:37→20:39)
[2022-02-25] MEDS: PREGABALIN 150 MG CAPSULE PO SCH ×2 (17:37→20:39)
[2022-02-25] MEDS: MELOXICAM 7.5 MG TABLET PO SCH ×2 (17:37→20:40)
[2022-02-25] MEDS: BACLOFEN 10 MG TABLET PO SCH ×2 (17:38→20:40)
[2022-02-25] MEDS: DOCUSATE SODIUM 100 MG CAPSULE PO SCH (20:39)
[2022-02-25] MEDS: cloNIDine HCL 0.1 MG TABLET PO SCH (20:40)
[2022-02-25] MEDS: HYDROcodone/APAP 5/325MG TABLET PO SCH (20:41)
[2022-02-25] MEDS: POLYETHYLENE GLYCOL 3350 17 GM PACKET PO PRN (20:44)
[2022-02-25] MEDS: CEFEPIME 1 GM VIAL IV SCH (20:56)
[2022-02-25] MEDS ORDERED: VANCOMYCIN 1,500 MG in 0.9 % SODIUM CHLORIDE 500 ML IV SCH (21:00)
[2022-02-25] MEDS ORDERED: SENNOSIDES 1 TABLET PO SCH (21:00)
[2022-02-25] MEDS ORDERED: traZODone HCL 50 MG TABLET PO PRN (21:00)
[2022-02-25] MEDS ORDERED: LORazepam 1 MG TABLET PO SCH (21:00)
[2022-02-26] MEDS: 0.9 % SODIUM CHLORIDE 10 ML SYRINGE IV SCH ×2 (05:14→14:29)
[2022-02-26 06:40] LABS: Basophils # (Auto) 0.01 K/mcL (0.00-0.30); Basophils % (Auto) 0.1 % (0.0-2.0); Eosinophils # (Auto) 0 K/mcL (0.00-0.70); Eosinophils % (Auto) 0 % (0.0-7.0); Hematocrit 32.2 % (40.1-51.0); Hemoglobin 10.5 g/dL (13.7-17.5); Lymphocytes # (Auto) 1.25 K/mcL (1.50-4.80); Lymphocytes % (Auto) 17.4 % (15.5-49.0); Mean Cell Volume 88.2 fL (80.0-100.0); Mean Corpuscular HGB Conc 32.6 g/dL (31.0-36.0); Mean Platelet Volume 10.8 fL (8.8-12.5); Monocytes # (Auto) 0.38 K/mcL (0.10-0.90); Monocytes % (Auto) 5.3 % (1.0-12.0); Neutrophils % (Auto) 76.5 % (38.0-78.0); Platelet Count 310 K/mcL (140-440); RBC 3.65 M/mcL (4.63-6.08); Red Cell Distribution Width 14.5 % (11.5-14.5); WBC 7.2 K/mcL (4.5-11.0)
[2022-02-26 07:06] LABS: ALT/SGPT 12 U/L (<40); AST/SGOT 15 U/L (<40); Albumin 4.2 gm/dL (3.2-5.2); Albumin/Globulin Ratio 1.6 (1.0-2.3); Alkaline Phosphatase 83 U/L (39-117); Bilirubin,Total 0.2 mg/dL (0.1-1.0); Blood Urea Nitrogen 9 mg/dL (6-20); Calcium 9.3 mg/dL (8.6-10.4); Carbon Dioxide 28 mmol/L (22-30); Chloride 103 mmol/L (96-108); Globulin 2.7 gm/dL (2.2-3.7); Glomerular Filtration Rate 116; Glucose 115 mg/dL (70-105)
[2022-02-26] MEDS: CEFEPIME 1 GM VIAL IV SCH (08:48)
[2022-02-26] MEDS: cloNIDine HCL 0.1 MG TABLET PO SCH (08:48)
[2022-02-26] MEDS: tiZANidine 4 MG TABLET PO SCH ×2 (08:49→12:16)
[2022-02-26] MEDS: DOCUSATE SODIUM 100 MG CAPSULE PO SCH (08:49)
[2022-02-26] MEDS: BACLOFEN 10 MG TABLET PO SCH ×2 (08:49→14:29)
[2022-02-26] MEDS: HYDROcodone/APAP 5/325MG TABLET PO SCH (08:49)
[2022-02-26] MEDS: PREGABALIN 150 MG CAPSULE PO SCH ×2 (08:50→14:29)
[2022-02-26] MEDS: morphine 15 MG TABLET PO SCH ×2 (08:50→14:29)
[2022-02-26] MEDS: MELOXICAM 7.5 MG TABLET PO SCH ×2 (08:50→14:28)
[2022-02-26] MEDS ORDERED: MULTIVIT,THER IRON,CA,FA & MIN 1 TABLET PO SCH (09:00)
[2022-02-26] MEDS ORDERED: buPROPion 150 MG TAB.XL.24H PO SCH (09:00)
[2022-02-26] MEDS ORDERED: POTASSIUM 99 MG PO SCH (09:00)
[2022-02-26] MEDS ORDERED: DULoxetine 30 MG CAPSULE PO SCH (09:00)
[2022-02-26] MEDS ORDERED: GLUCOSAMINE/CHONDROITIN SULF A 1 CAP CAPSULE PO SCH (09:00)
[2022-02-26] MEDS ORDERED: FLUCONAZOLE 400 MG/200 ML BAG IV SCH (09:00)
[2022-02-26] MEDS ORDERED: VITAMIN D3 125 MCG TABLET PO SCH (09:00)
[2022-02-26] MEDS ORDERED: NON FORMULARY MEDICATION 1 DOSE MISCELL (Duloxetine 60 mg capsule,delayed release(DR/EC)) PO SCH (09:00)
[2022-02-26] MEDS ORDERED: CALCIUM (OYSTER SHELL) 500 MG TABLET PO SCH (09:00)
[2022-02-26] MEDS: POLYETHYLENE GLYCOL 3350 17 GM PACKET PO PRN (09:22)
[2022-02-26] MEDS ORDERED: PNEUMOCOCCAL 23-VAL P-SAC VAC 0.5 ML SYRINGE IM ONE (10:00)
[2022-02-26] MEDS ORDERED: LORazepam 1 MG TABLET PO SCH (12:00)
--- NOTE | 2022-02-26 13:33 | Discharge Summary ---
Discharge Provider Provider IMPORTANT FOLLOW-UP INFORMATION FOR PCP: Patient information: Note initiated : 02/26/22 at 1:30 pm Service Date, if different from initiated Date: [] Patient: Aden Restrepo 52 y/o M admitted on 02/25/22 for pain pump wound. Chief Complaint: [] Date of admission: 02/25/22 08:58 Discharge date: 02/26/22 Primary care physician: Rosalva Castrejon Attending physician on admission: Evgeny Barroso Consults: 02/25/22 10:42 Consult to Physician [CONS] Routine Comment: Consulting Provider: Marc Du Reason For Exam: Physician to Consult Attending physician on discharge: Evgeny Bell Pui COURSE Hospital Course Hospital course: Mr. 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 He had pain pump placed in left upper quadrant abdomen in April of this year. It has been noted that the pain pump has eroded through the skin with a opening up to have in just in diameter for the past week. There was also slightly purulent discharge from the site. Last night the patient's had a mechanical fall in the pain pump components completely detached. He presented to outside ED [place], and the ED provider call Dr. Du pain specialist who agree to take the patient to the OR to take out the OR and malfunctioning pain pump and potentially place a new pump in another site. 02/26: s/p removal and replacement of the pain pump by Dr. Du yesterday. Patient has reached clinical stability. Decision made to discharge him home and with prescriptions sent to pharmacy. Instructions to follow-up with Dr. Du in his clinic on next Monday given to him. All questions were answered prior to patient being discharged. Discharge diagnosis: pain pump dysfunction; infection Time Spent with Patient Time attestation: Total time spent providing and/or coordinating discharge services: Time spent: Less than 30 minutes EXAM Constitutional Vitals: Temp Pulse Resp BP Pulse Ox O2 Del Method O2 Flow Rate 37.2 C 89 14 151/83 92 2.5 02/26/22 12:19 02/26/22 12:19 02/26/22 12:19 02/26/22 12:19 02/26/22 12:19 02/26/22 12:19 02/26/22 03:20 General appearance: cooperative and no acute distress Head Head exam: Present atraumatic and normocephalic Eye Eye exam: Present EOMI and PERRL ENT ENT exam: Present mucous membranes moist, normal exam and normal external ear exam Neck Neck exam: Present normal inspection; Absent lymphadenopathy, tenderness or thyromegaly Respiratory Respiratory exam: Absent accessory muscle use, respiratory distress or wheezes Cardiovascular Cardiovascular exam: Present normal rate and rhythm; Absent JVD GI/Abdominal GI/Abdominal exam: Present normal bowel sounds and soft; Absent organomegaly or tenderness Additional comments: pain pump surgically implanted Rectal Rectal exam: Present deferred Extremities Exam Extremities exam: Present full ROM, normal capillary refill and normal i nspection; Absent tenderness Neurological Exam Neurological exam: Present alert, CN II-XII intact and oriented X3; Absent motor sensory deficit Psychiatric Psychiatric exam: Present normal affect and normal mood; Absent anxious or depressed Skin Skin exam: Present dry and intact Discharge Data Data Completed and Pending Labs on day of discharge: Labs from last 24 hours 02/26/22 02/26/22 05:25 05:25 WBC 7.2 RBC 3.65 L Hgb 10.5 L Hct 32.2 L MCV 88.2 MCH 28.8 MCHC 32.6 RDW 14.5 Plt Count 310 MPV 10.8 Immature Gran % (Auto) 0.7 H Neut % (Auto) 76.5 Lymph % (Auto) 17.4 Wilson % (Auto) 5.3 Eos % (Auto) 0 Baso % (Auto) 0.1 Lymph # (Auto) 1.25 L Wilson # (Auto) 0.38 Eos # (Auto) 0 Baso # (Auto) 0.01 Immature Gran # 0.05 Absolute Neutrophils 5.50 Sodium 143 Potassium 3.8 Chloride 103 Carbon Dioxide 28 Anion Gap 12.0 BUN 9 Creatinine 0.6 L GFR Calculation 116 Glucose 115 H Calcium 9.3 Total Bilirubin 0.2 AST 15 ALT 12 Alkaline Phosphatase 83 Total Protein 6.9 Albumin 4.2 Globulin 2.7 Albumin/Globulin Ratio 1.6 Discharge Plan Patient/Caregiver Discharge Instructions Activity: increase activity as tolerated Diet: Regular Diet Activity Restrictions/Additional Instructions: Please contact Dr. Mullen's office on Monday to schedule an appointment for W March 02. This discharge packet is provided to you to help keep you informed about your care. We want to ensure you get everything you need when you go home. You will also be receiving a call from us in a few days to follow up with you and see how you are doing since your discharge. This gives us a chance to listen to any concerns you maybe experiencing since you were discharged or any additional needs you may have, as well as providing us feedback on your care experience. We strive to always provide excellent care and thank you for your feedback and for choosing [facility]. Prescriptions: New fluconazole [Diflucan] 100 mg tablet 100 mg PO QDAY Qty: 14 0RF Continued baclofen 10 mg tablet 10 mg PO TID Qty: 90 2RF Rx Instructions: *Must last 30 days* pregabalin 150 mg capsule 150 mg PO TID Qty: 90 2RF amoxicillin-pot clavulanate 875-125 mg tablet 1 tab PO QDAY meloxicam 7.5 mg tablet 7.5 mg PO TID lorazepam 1 mg tablet See Rx Instructions .ROUTE .COMPLEX Rx Instructions: 1mg at noon; 2 mg at bedtime bupropion HCl 300 mg tablet extended release 24 hr 300 mg PO QDAY albuterol sulfate 90 mcg/actuation HFA aerosol inhaler 90 mcg inhalation Q6HP PRN (Reason: Shortness Of Breath) duloxetine 30 mg capsule,delayed release(DR/EC) 30 mg PO QDAY Qty: 30 1RF duloxetine 60 mg capsule,delayed release(DR/EC) 60 mg PO QDAY Qty: 30 1RF clonidine HCl 0.2 mg tablet 0.2 mg PO BID Qty: 60 1RF hydrocodone-acetaminophen 5-325 mg tablet 1 tab PO BID Qty: 60 0RF Rx Instructions: *MUST LAST 30 DAYS* P/U 02/09, Start 02/10 morphine 15 mg tablet 15 mg PO TID Qty: 90 0RF Rx Instructions: *Must last 30 days* 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, 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 02/19 multivitamin Tablet 1 tab PO QDAY calcium 600 mg Capsule 600 mg PO QDAY acetaminophen 325 mg Tablet 650 mg PO Q6H PRN (Reason: Pain) potassium 99 mg Tablet 99 mg PO QDAY diphenhydramine HCl [Allergy (diphenhydramine)] 25 mg Capsule 25 mg PO Q6H PRN (Reason: Allergies) cholecalciferol (vitamin D3) [Vitamin D3] 125 mcg (5,000 unit) Tablet 125 mcg PO QDAY Glucosamine Chondroitin 550-30-1 mg Capsule 1 cap PO QDAY tizanidine 4 mg tablet See Rx Instructions .ROUTE .COMPLEX Rx Instructions: 1.5 mg TID (am, noon, pm); 2.5 mg qhs naloxone [Narcan] 4 mg/actuation spray,non-aerosol 4 mg intranasal Q2M PRN (Reason: Opioid Overdose) Rx Instructions: spray 1 dose into ONE nostril; alternate nostrils w each dose until help arrives Follow Up Plan Follow up with: Marc Du MD [Physician] - Patient Disposition: Home, Self-Care Rehab Potential: Good I certify that the patient requires SNF services: No Overall status at discharge: patient is back to baseline Discharge Orders: Discharge Order (Routine); Ordered 02/26/22 Ordered By: Marc Du
--- NOTE | 2022-02-28 07:29 | EKG ---
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
--- NOTE | 2022-02-28 08:39 | Intrathecal Pump Removal ---
DATE OF PROCEDURE: 02/25/2022 PREOPERATIVE DIAGNOSIS: Infected and exposed intrathecal pump and catheter. POSTOPERATIVE DIAGNOSIS: Infected and exposed intrathecal pump and catheter. PROCEDURE: Explantation of intrathecal pump and catheter with incision and drainage of wound. SURGEON: Marc Du M.D. ANESTHESIA: General LMA. ESTIMATED BLOOD LOSS: 200 mL. COMPLICATIONS: None. DESCRIPTION OF PROCEDURE: After informed consent, the patient was transferred to the operating room and general anesthesia was induced with placement of a laryngeal mask airway. The patient was then positioned in the right lateral position on a beanbag with pressure points protected. The abdominal and lumbar region was then prepped and draped in the usual sterile manner. The lumbar incision was infiltrated with 10 mL of 1% lidocaine with epinephrine 1:200,000. The incision was then opened with a #10 blade sharply down through Jaxon's fascia. The anchor point of the intrathecal catheter was identified. It was noted that the catheter was transected at that point and appeared to have been that way for some time. The catheter was trimmed and freed. The incision was irrigated. Hemostasis was achieved with electrocautery. The incision was then closed with interrupted layer of 2-0 Vicryl through Jaxon's fascia, interrupted subcutaneous layer of 3-0 Monocryl and skin was approximated with surgical clem. Attention was then placed to the pump pocket site that had the exposed pump. There was a very indurated wound in the superolateral aspect. The old incision was opened sharply down to the pump pocket. It was noted there was an extreme amount of indurated tissues when I approached the pocket. The pump was freed from the pocket and removed. Hemostasis was achieved with electrocautery. The wound in the superolateral aspect of the pocket was ellipsed. Hemostasis was achieved with electrocautery. The surrounding tissue was mobilized. The indurated portion of the incision over the body of the pump was excised. It was noted there was some old Dacron mesh tied up in this. The wound was then irrigated with 3 liters of normal saline with pulse lavage. Hemostasis was achieved. A Luis-Tolentino drain #10 Beninese was placed in the pocket. Both incisions were then closed with interrupted layer of 2-0 Vicryl through Jaxon's fascia, interrupted layer of 3-0 Monocryl subcutaneous. The skin was approximated with 2-0 nylon simple interrupted sutures. Sponge and needle counts were correct x2 at the end of the case. The patient was awakened and taken to the recovery room in satisfactory condition. CGF:[email or web address] Job ID: [id number] Doc ID: [id number] Marc Du MD
== END 2022-02-26 15:07 | disposition home or self-care (01) | DRG 28 ==
LOC: MEDSUR 08:58
PROVIDERS: ADMIT Internal Medicine; ATTEND Internal Medicine

== ENCOUNTER 2024-11-12 11:00 | Inpatient (IN) ==
[2024-11-12 12:22] LABS: Basophils # (Auto) 0.04 K/mcL (0.00-0.30); Basophils % (Auto) 0.4 % (0.0-2.0); Eosinophils # (Auto) 0.20 K/mcL (0.00-0.70); Eosinophils % (Auto) 2.0 % (0.0-7.0); Hematocrit 36.5 % (40.1-51.0); Hemoglobin 11.8 g/dL (13.7-17.5); Lymphocytes # (Auto) 1.55 K/mcL (1.50-4.80); Lymphocytes % (Auto) 15.9 % (15.5-49.0); Mean Corpuscular HGB Conc 32.3 g/dL (31.0-36.0); Monocytes # (Auto) 0.80 K/mcL (0.10-0.90); Monocytes % (Auto) 8.2 % (1.0-12.0); Neutrophils % (Auto) 73.4 % (38.0-78.0); Platelet Count 344 K/mcL (140-440); RBC 3.95 M/mcL (4.63-6.08); WBC 9.8 K/mcL (4.5-11.0)
[2024-11-12 12:27] LABS: INR 1.0 (0.9-1.1); Prothrombin Time 13.7 sec (11.9-14.5)
[2024-11-12 12:52] LABS: ALT/SGPT 19 U/L (<40); AST/SGOT 15 U/L (<40); Albumin 4.4 gm/dL (3.2-5.2); Albumin/Globulin Ratio 1.2 (1.0-2.3); Alkaline Phosphatase 103 U/L (39-117); Anion Gap 14.0 (8.0-16.0); Bilirubin,Total 0.3 mg/dL (0.1-1.0); Blood Urea Nitrogen 11 mg/dL (6-20); Calcium 9.3 mg/dL (8.6-10.4); Carbon Dioxide 26 mmol/L (22-30); Chloride 101 mmol/L (96-108); Globulin 3.7 gm/dL (2.2-3.7); Glucose 123 mg/dL (70-105); Potassium 3.9 mmol/L (3.3-5.1); Sodium 141 mmol/L (133-145)
[2024-11-12] MEDS ORDERED: fentaNYL 100 MCG/2 ML VIAL ONE ×2 (13:12→16:17)
[2024-11-12] MEDS ORDERED: LIDOCAINE 2% PF 5 ML VIAL ONE (13:12)
[2024-11-12] MEDS ORDERED: DEXAMETHASONE 10 MG/ML VIAL ONE (13:12)
[2024-11-12] MEDS ORDERED: ONDANSETRON 4 MG/2 ML VIAL ONE (13:12)
[2024-11-12] MEDS ORDERED: PROPOFOL 200 MG/20 ML VIAL IV ONE (13:12)
[2024-11-12] MEDS: ceFAZolin 2 GM in DEXTROSE 5% IN WATER 50 ML IV SCH (14:12)
[2024-11-12] MEDS ORDERED: HYDROmorphone 0.5 MG/0.5 ML SYRINGE ONE ×2 (14:57→15:31)
[2024-11-12] MEDS ORDERED: ONDANSETRON 4 MG/2 ML VIAL IV PRN ×3 (15:34→18:01)
[2024-11-12] MEDS ORDERED: LACTATED RINGERS 250 ML IV PRN (15:34)
[2024-11-12] MEDS ORDERED: NALOXONE HCL 0.4 MG/ML VIAL IV PRN (15:34)
[2024-11-12] MEDS ORDERED: IPRATROPIUM/ALBUTEROL 3 ML AMPUL.NEB NEB PRN ×2 (15:34→18:01)
[2024-11-12] MEDS ORDERED: MEPERIDINE 25 MG/ML VIAL IV PRN (15:34)
[2024-11-12] MEDS ORDERED: diphenhydrAMINE 50 MG/ML VIAL IV PRN (15:34)
[2024-11-12] MEDS ORDERED: BISACODYL 10 MG SUPP.RECT PR PRN (15:38)
[2024-11-12] MEDS ORDERED: FLEETS ADULT 1 DOSE ENEMA PR PRN (15:38)
[2024-11-12] MEDS ORDERED: 0.9 % SODIUM CHLORIDE 10 ML SYRINGE IV PRN (15:38)
[2024-11-12] MEDS ORDERED: MAGNESIUM HYDROXIDE 30 ML ORAL.SUSP PO PRN (15:38)
[2024-11-12] MEDS ORDERED: POLYETHYLENE GLYCOL 3350 17 GM PACKET PO PRN (15:38)
[2024-11-12] MEDS ORDERED: NALOXONE HCL 4 MG NASAL (PP) NS SCH (15:45)
[2024-11-12] MEDS ORDERED: ALBUTEROL SULFATE 60 PUFF INHALER INH PRN (15:45)
[2024-11-12] MEDS: VANCOMYCIN 1 GM VIAL TOPICAL SCH (16:05)
[2024-11-12] MEDS: TOBRAMYCIN SULFATE 1.2 GM VIAL TOPICAL ONE ×2 (16:13→18:05)
[2024-11-12] MEDS: ACETAMINOPHEN 1,000 MG/100 ML BAG IV ONE (16:48)
[2024-11-12] MEDS: TRANEXAMIC ACID 1,000 MG/10 ML VIAL IV ONE (16:56)
[2024-11-12] MEDS: METHOCARBAMOL 1,000 MG/10 ML VIAL IV PRN (16:56)
[2024-11-12] MEDS: fentaNYL 100 MCG/2 ML VIAL IV PRN (16:57)
[2024-11-12] MEDS ORDERED: ACETAMINOPHEN 325 MG TABLET PO PRN (18:01)
[2024-11-12] MEDS: LACTATED RINGERS 1,000 ML IV SCH (18:03)
[2024-11-12] MEDS: BACLOFEN 10 MG TABLET PO SCH (18:05)
[2024-11-12] MEDS: 0.9 % SODIUM CHLORIDE 1,000 ML IV SCH (18:13)
[2024-11-12] MEDS: PIPERACILLIN SODIUM/TAZOBACTAM 4.5 GM in DEXTROSE 5% IN WATER 50 ML IV SCH (18:57)
[2024-11-12] MEDS: ACETAMINOPHEN 500 MG TABLET PO SCH (20:07)
[2024-11-12] MEDS: SENNOSIDES 1 TABLET PO SCH (20:07)
[2024-11-12] MEDS: PREGABALIN 150 MG CAPSULE PO SCH (20:08)
[2024-11-12] MEDS: MELATONIN 3 MG TABLET PO SCH (20:08)
[2024-11-12] MEDS: morphine 30 MG TAB.SR.12H PO SCH (20:08)
[2024-11-12] MEDS: DOCUSATE SODIUM 100 MG CAPSULE PO SCH (20:08)
[2024-11-12] MEDS: HEPARIN 10 UNITS/ML 5ML FLUSH IV SCH ×2 (20:09)
[2024-11-12] MEDS: 0.9 % SODIUM CHLORIDE 10 ML SYRINGE IV SCH ×2 (20:12)
[2024-11-12] MEDS: PIPERACILLIN SODIUM/TAZOBACTAM 3.375 GM in DEXTROSE 5% IN WATER 50 ML IV SCH (20:19)
[2024-11-12] MEDS ORDERED: 0.9 % SODIUM CHLORIDE 10 ML SYRINGE IV SCH (21:00)
[2024-11-12] MEDS ORDERED: ASPIRIN 81 MG TAB.CHEW CHEWED SCH (21:00)
[2024-11-12] MEDS: PIPERACILLIN SODIUM/TAZOBACTAM 4.5 GM in DEXTROSE 5% IN WATER 100 ML IV SCH (22:47)
[2024-11-13] MEDS: tiZANidine 4 MG TABLET PO PRN (02:09)
[2024-11-13 06:39] LABS: Basophils # (Auto) 0.04 K/mcL (0.00-0.30); Basophils % (Auto) 0.4 % (0.0-2.0); Eosinophils # (Auto) 0.11 K/mcL (0.00-0.70); Eosinophils % (Auto) 1.0 % (0.0-7.0); Hematocrit 32.7 % (40.1-51.0); Hemoglobin 10.5 g/dL (13.7-17.5); Lymphocytes # (Auto) 2.49 K/mcL (1.50-4.80); Lymphocytes % (Auto) 23.7 % (15.5-49.0); Mean Corpuscular HGB Conc 32.1 g/dL (31.0-36.0); Monocytes # (Auto) 1.19 K/mcL (0.10-0.90); Monocytes % (Auto) 11.3 % (1.0-12.0); Neutrophils % (Auto) 63.5 % (38.0-78.0); Platelet Count 333 K/mcL (140-440); RBC 3.50 M/mcL (4.63-6.08); WBC 10.5 K/mcL (4.5-11.0)
[2024-11-13 06:53] LABS: ALT/SGPT 18 U/L (<40); AST/SGOT 20 U/L (<40); Albumin 3.8 gm/dL (3.2-5.2); Albumin/Globulin Ratio 1.5 (1.0-2.3); Alkaline Phosphatase 92 U/L (39-117); Anion Gap 12.0 (8.0-16.0); Bilirubin,Total 0.3 mg/dL (0.1-1.0); Blood Urea Nitrogen 9 mg/dL (6-20); Calcium 8.9 mg/dL (8.6-10.4); Carbon Dioxide 28 mmol/L (22-30); Chloride 98 mmol/L (96-108); Globulin 2.5 gm/dL (2.2-3.7); Glucose 116 mg/dL (70-105); Potassium 3.6 mmol/L (3.3-5.1); Sodium 138 mmol/L (133-145)
[2024-11-13] MEDS ORDERED: NON FORMULARY MEDICATION 1 DOSE MISCELL (Multivitamin tablet) PO SCH (09:00)
[2024-11-13] MEDS ORDERED: GLUCOS SUL PO SCH (09:00)
[2024-11-13] MEDS ORDERED: [UNRECOGNIZED DRUG - OTHER] PO SCH (09:00)
[2024-11-13] MEDS: VITAMIN D3 125 MCG TABLET PO SCH (09:19)
[2024-11-13] MEDS: CETIRIZINE 10 MG TABLET PO SCH (09:20)
[2024-11-13] MEDS ORDERED: LIDOCAINE 1% 10 ML VIAL SQ ONE (09:20)
[2024-11-13] MEDS: MULTIVIT,THER IRON,CA,FA & MIN 1 TABLET PO SCH (09:20)
[2024-11-13] MEDS ORDERED: SODIUM CHLORIDE IRRIG SOLUTION 250 ML BOTTLE IRR ONE (09:20)
[2024-11-13] MEDS ORDERED: HEPARIN 10 UNITS/ML 5ML FLUSH IV ONE (09:20)
[2024-11-13] MEDS: ENOXAPARIN 40 MG/0.4 ML SYRINGE SQ SCH (09:21)
[2024-11-13] MEDS: buPROPion 300 MG TAB.XL.24H PO SCH (10:20)
[2024-11-13] MEDS ORDERED: VANCOMYCIN PER PHARMACY IV SCH (11:45)
[2024-11-13] MEDS: VANCOMYCIN 1,500 MG in 0.9 % SODIUM CHLORIDE 500 ML IV SCH (13:12)
[2024-11-13] MEDS ORDERED: tiZANidine 4 MG TABLET PO PRN (14:04)
[2024-11-13] MEDS ORDERED: NON FORMULARY MEDICATION 1 DOSE MISCELL (Hydroxyzine Pamoate 25 mg capsule) PO SCH (17:00)
[2024-11-13] MEDS ORDERED: ACETAMINOPHEN 500 MG TABLET PO SCH (17:00)
[2024-11-14] MEDS ORDERED: 0.9 % SODIUM CHLORIDE 10 ML SYRINGE IV PRN (03:23)
[2024-11-14 06:20] LABS: Basophils # (Auto) 0.05 K/mcL (0.00-0.30); Basophils % (Auto) 0.6 % (0.0-2.0); Eosinophils # (Auto) 0.31 K/mcL (0.00-0.70); Eosinophils % (Auto) 3.4 % (0.0-7.0); Hematocrit 31.6 % (40.1-51.0); Hemoglobin 10.3 g/dL (13.7-17.5); Lymphocytes # (Auto) 2.31 K/mcL (1.50-4.80); Lymphocytes % (Auto) 25.5 % (15.5-49.0); Mean Corpuscular HGB Conc 32.6 g/dL (31.0-36.0); Monocytes # (Auto) 0.94 K/mcL (0.10-0.90); Monocytes % (Auto) 10.4 % (1.0-12.0); Neutrophils % (Auto) 60.0 % (38.0-78.0); Platelet Count 307 K/mcL (140-440); RBC 3.38 M/mcL (4.63-6.08); WBC 9.1 K/mcL (4.5-11.0)
[2024-11-14 06:37] LABS: ALT/SGPT 13 U/L (<40); AST/SGOT 13 U/L (<40); Albumin 3.6 gm/dL (3.2-5.2); Albumin/Globulin Ratio 1.5 (1.0-2.3); Alkaline Phosphatase 81 U/L (39-117); Anion Gap 12.0 (8.0-16.0); Bilirubin,Total 0.2 mg/dL (0.1-1.0); Blood Urea Nitrogen 12 mg/dL (6-20); Calcium 9.1 mg/dL (8.6-10.4); Carbon Dioxide 29 mmol/L (22-30); Chloride 101 mmol/L (96-108); Globulin 2.4 gm/dL (2.2-3.7); Glucose 124 mg/dL (70-105); Potassium 3.5 mmol/L (3.3-5.1); Sodium 142 mmol/L (133-145)
[2024-11-14] MEDS: buPROPion 150 MG TAB.XL.24H PO SCH (08:32)
[2024-11-14] MEDS: 0.9 % SODIUM CHLORIDE 10 ML SYRINGE IV SCH (08:43)
[2024-11-15 07:21] LABS: ALT/SGPT 21 U/L (<40); AST/SGOT 18 U/L (<40); Albumin 3.8 gm/dL (3.2-5.2); Albumin/Globulin Ratio 1.4 (1.0-2.3); Alkaline Phosphatase 84 U/L (39-117); Anion Gap 10.0 (8.0-16.0); Bilirubin,Direct < 0.2 mg/dL (0-0.3); Bilirubin,Total < 0.2 mg/dL (0.1-1.0); Blood Urea Nitrogen 13 mg/dL (6-20); Calcium 9.4 mg/dL (8.6-10.4); Carbon Dioxide 30 mmol/L (22-30); Chloride 100 mmol/L (96-108); Globulin 2.8 gm/dL (2.2-3.7); Glucose 129 mg/dL (70-105); Phosphorous 4.9 mg/dL (2.5-4.5); Potassium 4.3 mmol/L (3.3-5.1); Sodium 140 mmol/L (133-145); Triglycerides 110 mg/dL (<150); Uric Acid 2.3 mg/dL (2.5-8.0)
[2024-11-15] MEDS: AMPICILLIN SODIUM IV SCH (14:26)
[2024-11-15] MEDS: SODIUM CHLORIDE 0.9% IV SCH (14:26)
[2024-11-15] MEDS: SULBACTAM NA IV SCH (14:26)
[2024-11-16 06:56] VITALS: TEMP 98.2; O2SAT 94
[2024-11-16] MEDS: ALTEPLASE 2 MG VIAL IV ONE ×2 (09:08)
== END 2024-11-16 11:15 | DRG 908 ==
LOC: ED 11:00 → SUR 13:35 → MEDSUR 17:43
PROVIDERS: ADMIT Internal Medicine; ATTEND Internal Medicine